=== PATIENT | male | born 1985 | race Caucasian/White ===

== ENCOUNTER 2020-10-30 20:27 | Emergency (ER) | payer SELFPAY ==
[2020-10-30] MEDS ORDERED: Boostrix 0.5 ML (Tdap) VIAL ONE (20:43)
[2020-10-30] MEDS ORDERED: CEFAZOLIN 1 GM VIAL ONE (20:43)
[2020-10-30] MEDS ORDERED: Morphine 4 MG/ML VIAL ONE (20:43)
[2020-10-30] MEDS ORDERED: Sodium Chloride 0.9% 1,000 ML ONE (20:43)
[2020-10-30] MEDS ORDERED: Sodium Chloride 0.9% 100 ML ONE (20:44)
[2020-10-30 21:03] LABS: #Basophils 0.1 thou/uL (0.0-0.2); #Eosinphils 0.1 thou/uL (0.0-0.7); #Lymphocytes 1.5 thou/uL (1.20-3.40); #Monocytes 0.8 thou/uL (0.11-0.59); #Neutrophils 10.7 thou/uL (1.40-6.50); %Basophils 0.6 % (0.0-1.0); %Eosinophils 0.9 % (0.0-10.0); %Lymphocytes 11.4 % (21.0-51.0); %Monocytes 6.4 % (0.0-10.0); %Neutrophils 80.8 % (42.0-75.0); Hemoglobin 14.7 g/dL (14.0-18.0); Mean Corpuscular HGB CONC 34.9 g/dL (32.0-36.0); Mean Corpuscular Hemoglobin 31.3 pg (27.0-31.0); Mean Corpuscular Volume 89.6 fL (78.0-98.0); Mean Platelet Volume 7.6 fL (7.4-10.4); Platelet Count 271 thou/uL (130-400); RBC Distribution Width 11.4 % (11.5-14.5); White Blood Cell (WBC) Count 13.2 thou/uL (4.8-10.8)
[2020-10-30 21:15] LABS: Anion Gap 14 mmol/L (10-20); BUN (Urea Nitrogen) 16 mg/dL (8.9-20.6); CRP (Inflammatory) Less than 0.50 mg/dL (= or < 0.5); Calc. Creatinine Clearance 0 mL/min (70-130); Calcium 8.9 mg/dL (7.8-10.44); Carbon Dioxide 24 mmol/L (22-29); Chloride 103 mmol/L (98-107); Glucose 218 mg/dL (70-105); Potassium 3.2 mmol/L (3.5-5.1); Sodium 138 mmol/L (136-145)
[2020-10-30] MEDS ORDERED: Lidocaine 1% w/Epinephrine 1:100K 30 ML VIAL ONE (21:39)
== END 2020-10-30 22:58 | disposition short-term general hospital (02) ==
LOC: NAV ERS 20:27
DX: M12.561 Traumatic arthropathy, right knee (principal); S81.011A Laceration without foreign body, right knee, initial encounter; F17.200 Nicotine dependence, unspecified, uncomplicated; Z23 Encounter for immunization
CPT/HCPCS: 80048; 85025; 86140; 90471; 90715; 96372; 96374; 96375; J0690; J2270; J7050